=== PATIENT | male | born 1985 | race Caucasian/White ===

== ENCOUNTER 2022-10-26 14:12 | Inpatient (IN) | payer MEDICAID ==
[~2022-10-26] VITALS: Ht 188 cm; Wt 113.4 kg
[2022-10-26] MEDS ORDERED: IPRATROPIUM BROMIDE 0.5 MG/2.5 ML NEBU NEB STA (14:15)
[2022-10-26] MEDS ORDERED: CEFTRIAXONE 1 G in IV DEXTROSE 5% 50 ML IV SCH (14:15)
[2022-10-26] MEDS ORDERED: methylPREDNISolone SOD SUCC 125 MG/2 ML VIAL IV ONE (14:15)
[2022-10-26] MEDS ORDERED: AZITHROMYCIN IV 500 MG in IV DEXTROSE 5% 250 ML IV SCH (14:15)
[2022-10-26] MEDS ORDERED: MAGNESIUM SULFATE 2 GM in IV DEXTROSE 5% 100 ML IV ONE (14:15)
[2022-10-26] MEDS ORDERED: ACETAMINOPHEN ES 500 MG TABLET PO ONE (14:15)
[2022-10-26] MEDS ORDERED: ALBUTEROL SULFATE 2.5 MG/3 ML NEBU NEB ONE ×2 (14:15→18:00)
[2022-10-26] MEDS ORDERED: IV NORMAL SALINE 1000 ML BAG IV ONE (14:15)
[2022-10-26] MEDS ORDERED: methylPREDNISolone SOD SUCC 125 MG/2 ML VIAL ONE (14:16)
--- NOTE | 2022-10-26 14:25 | NUR ---
Patient placed on BiPap machine.
[2022-10-26] MEDS ORDERED: ALBUTEROL SULFATE 2.5 MG/3 ML NEBU ONE ×2 (14:30→20:22)
[2022-10-26] MEDS ORDERED: IPRATROPIUM BROMIDE 0.5 MG/2.5 ML NEBU ONE ×2 (14:30→20:22)
[2022-10-26] MEDS ORDERED: ALBU2.5V13 NEB (14:32)
[2022-10-26 14:38] LABS: HEMATOCRIT 43.9 % (36.7-47.1); MEAN CORPUSCULAR HEMOGLOBIN 29.5 uug (23.8-33.4); MEAN CORPUSCULAR VOLUME 88.3 fL (73.0-96.2); PLATELET COUNT (AUTO) 282 K/uL (152-348)
[2022-10-26 14:44] LABS: CARBON DIOXIDE 28 mmol/L (21-32); CHLORIDE 102 mmol/L (98-107); CREATININE 0.8 mg/dL (0.6-1.3); GLUCOSE 112 mg/dL (74-106); POTASSIUM 4.5 mmol/L (3.5-5.1); UREA NITROGEN, BLOOD 8 mg/dL (7-18)
[2022-10-26] MEDS ORDERED: CEFTRIAXONE /D5W 50ML IVPB **ER PYXIS IV ONE (14:47)
[2022-10-26] MEDS ORDERED: AZITHROMYCIN 500MG/ D5W 250ML IVPB **ER PYXIS ONLY IV ONE (14:48)
[2022-10-26 14:57] LABS: ALANINE AMINOTRANSFERASE 48 U/L (16-63); ALKALINE PHOSPHATASE 69 U/L (50-136); ASPARTATE AMINOTRANSFERASE 34 U/L (15-37); BILIRUBIN,DIRECT 0.3 mg/dL (0.0-0.2); BILIRUBIN,TOTAL 1.7 mg/dL (0.2-1.0); TOTAL PROTEIN, SERUM 8.6 g/dL (6.4-8.2)
--- NOTE | 2022-10-26 17:20 | NUR ---
Patient states he feels much better off the BiPap and his breathing improved.
--- NOTE | 2022-10-26 17:20 | NUR ---
Patient taken off BiPap.
[2022-10-26] MEDS ORDERED: MAGNESIUM HYDROXIDE 30 ML LIQUID UDC PO PRN (17:30)
[2022-10-26] MEDS ORDERED: levoFLOXacin 500 MG/D5W 500 MG in PREMIXED 1 EACH IV SCH (17:30)
[2022-10-26] MEDS ORDERED: REMEDY ESSENTIAL ZINC PASTE 113 GM TP PRN (17:30)
[2022-10-26] MEDS ORDERED: ACETAMINOPHEN 325 MG TABLET PO PRN (17:30)
[2022-10-26] MEDS ORDERED: ONDANSETRON 4 MG/2 ML VIAL IV PRN (17:30)
--- NOTE | 2022-10-26 17:30 | NUR ---
Patient placed on 4L nasal cannula.
[2022-10-26 17:52] LABS: ABG BASE EXCESS 0.8 mmol/L; ABG HCO3 24.4 mmol/L; ABG PCO2 35.8 mmHg (35.0-45.0); ABG PH 7.451 (7.350-7.450); ABG PO2 66.5 mmHg (75.0-100.0); ABG SITE RIGHT RADIAL; ABG TOTAL HEMOGLOBIN 14.3 G/dL (13.5-18.0); COHb 0.6 % (0.5-1.5); MetHb 0.1 % (0.0-1.5); O2Hb 94.1 % (94.0-97.0); VENT MODE Nasal Cannula
--- NOTE | 2022-10-26 18:31 | NUR ---
Per Lynne Cabrera to hold off on the Levaquin 500mg drip at this time.
[2022-10-26] MEDS: ENOXAPARIN SODIUM 40 MG/0.4 ML DISP.SYRIN SQ SCH (18:35)
--- NOTE | 2022-10-26 19:38 | NUR ---
PATIENT SITTING UP IN BED WITH FAMILY AT BEDSIDE, UPDATED ON PLAN OF CARE AWARE WILL BE ADMITTED TO THE HOSPITAL, INFORMED OF ROOM #, RECIEVING BREATHING TREATMENT AT THIS TIME. NO S/S OF ANY DISTRESS NOTED, ABD SOFT WITH POSITIVE BOWEL SOUNDS AND NON-TENDER TO PALPATION. SALINE LOCKS REMAIN INTACT, SIDE RAILS UP WILL CONTINUE TO MONITOR.
--- NOTE | 2022-10-26 20:01 | NUR ---
report given to German, patient remains stable for transport.
[2022-10-26] MEDS: ALBUTEROL SULFATE 2.5 MG/3 ML NEBU NEB SCH (20:29)
[2022-10-26] MEDS: IPRATROPIUM BROMIDE 0.5 MG/2.5 ML NEBU NEB SCH (20:29)
[2022-10-26 20:50] VITALS: BP 119/70
--- NOTE | 2022-10-26 21:20 | NUR ---
Received Pt from Jeanie (RN). Pt arrived in unit at 2041. Pt is A&Ox4 and cooperative. Pt currently on 4L of O2. 20G IV R wrist & 18 G left AC. SR on tele. Safety measures in place. Will continue to monitor.
[2022-10-26] MEDS: methylPREDNISolone SOD SUCC 40 MG/ML VIAL IV SCH (21:52)
[2022-10-27 00:02] VITALS: BP 106/51
[2022-10-27] MEDS: ALBUTEROL SULFATE 2.5 MG/3 ML NEBU NEB SCH ×6 (00:10→23:08)
[2022-10-27 04:11] VITALS: BP 104/58
[2022-10-27] MEDS ORDERED: ALBUTEROL SULFATE 2.5 MG/3 ML NEBU NEB PRN (04:30)
[2022-10-27] MEDS ORDERED: IPRATROPIUM BROMIDE 0.5 MG/2.5 ML NEBU NEB PRN (04:30)
[2022-10-27] MEDS: methylPREDNISolone SOD SUCC 40 MG/ML VIAL IV SCH ×3 (05:07→22:06)
--- NOTE | 2022-10-27 06:38 | NUR ---
End of Shift Note: Pt is A&Ox4 and cooperative. Pt currently on 2.5L of O2. Will inform Day shift to titrate as needed. SR on tele. Safety measures in place. Will continue to monitor.
--- NOTE | 2022-10-27 07:30 | NUR ---
RECEIVED PATIENT IN BED AWAKE ALERT AND ORIENTED WITH O2 AT 2.5L/M WITH NO SOB AT THIS TIME OCCASSIONAL COUGH EPISODES DENIES DISCOMFORTS TELE IS SR WITH NO ECTOPY CALL LIGHTS AND PERSONAL BELONGINGS ARE WITHIN EASY REACH AT THIS TIME WILL CONTINUE TO OBSERVE.
[2022-10-27] MEDS: IPRATROPIUM BROMIDE 0.5 MG/2.5 ML NEBU NEB SCH ×4 (07:40→23:08)
[2022-10-27 07:55] LABS: HEMATOCRIT 39.4 % (36.7-47.1); MEAN CORPUSCULAR HEMOGLOBIN 29.6 uug (23.8-33.4); MEAN CORPUSCULAR VOLUME 88.8 fL (73.0-96.2); PLATELET COUNT (AUTO) 271 K/uL (152-348)
[2022-10-27 08:09] LABS: CREATININE 0.8 mg/dL (0.6-1.3); MAGNESIUM 2.5 mg/dL (1.8-2.4); PHOSPHOROUS 4.1 mg/dL (2.5-4.9)
[2022-10-27] MEDS: PANTOPRAZOLE SODIUM 40 MG VIAL IV SCH (08:28)
--- NOTE | 2022-10-27 11:23 | NUR ---
PATIENT SEEN AND EXAMINED BY DR LAGUNAS WITH NEW ORDERS AND NOTED
[2022-10-27 11:45] VITALS: BP 108/48
--- NOTE | 2022-10-27 13:00 | NUR ---
RESTING IN BED AWARE THAT DR LAGUNAS ORDERED SPUTUM SPECIMEN CUP PROVIDED WILL LET US KNOW WHEN HE HAS THE SPECIMEN.
[2022-10-27] MEDS: levoFLOXacin 500 MG/D5W 500 MG in PREMIXED 1 EACH IV SCH (14:23)
[2022-10-27 16:27] VITALS: BP 114/55
--- NOTE | 2022-10-27 18:00 | NUR ---
SPUTUM SPECIMEN OBTAINED AND SENT TO THE LAB.IV ANTIBIOTICS INFUSED ORDERED WITH NO ADVERSE OR ALLERGIC REACTIONS AT THIS TIME NO SOB REMAIN ON O2 ORDERED.
[2022-10-27 20:00] VITALS: BP 112/63
[2022-10-27] MEDS: ENOXAPARIN SODIUM 40 MG/0.4 ML DISP.SYRIN SQ SCH (21:02)
[2022-10-28] VITALS: BP 101/63
[2022-10-28] MEDS: methylPREDNISolone SOD SUCC 40 MG/ML VIAL IV SCH ×3 (05:29→21:13)
[2022-10-28 07:13] VITALS: BP 104/63
[2022-10-28] MEDS: IPRATROPIUM BROMIDE 0.5 MG/2.5 ML NEBU NEB SCH ×4 (07:42→19:41)
[2022-10-28] MEDS: ALBUTEROL SULFATE 2.5 MG/3 ML NEBU NEB SCH ×4 (07:42→19:41)
[2022-10-28 07:50] LABS: HEMATOCRIT 38.9 % (36.7-47.1); MEAN CORPUSCULAR HEMOGLOBIN 29.7 uug (23.8-33.4); MEAN CORPUSCULAR VOLUME 89.3 fL (73.0-96.2); PLATELET COUNT (AUTO) 309 K/uL (152-348)
[2022-10-28 08:19] LABS: CREATININE 0.8 mg/dL (0.6-1.3); MAGNESIUM 2.5 mg/dL (1.8-2.4); PHOSPHOROUS 4.3 mg/dL (2.5-4.9); POTASSIUM 4.8 mmol/L (3.5-5.1)
[2022-10-28] MEDS: PANTOPRAZOLE SODIUM 40 MG VIAL IV SCH (08:51)
--- NOTE | 2022-10-28 10:30 | NUR ---
Pt. AAOX4. Vital signs WNL. Denies pain and any discomfort. Pt. in 2.5 L ocygen via nasal canula saturating 94-95%. No complain of any respiratory distress. Will continue to monitor.
[2022-10-28 11:52] VITALS: BP 104/59
--- NOTE | 2022-10-28 13:00 | NUR ---
Pt. AAOX4. Pt. sitting on the bed in RA this time as per MARGA Quigley's order and pt saturating 93% without any respiratory distress. Pt. went to CT scan of the chest via wheelchair as per .
[2022-10-28] MEDS: levoFLOXacin 500 MG/D5W 500 MG in PREMIXED 1 EACH IV SCH (14:20)
[2022-10-28 16:53] VITALS: BP 116/50
--- NOTE | 2022-10-28 18:35 | NUR ---
Pt. is comfortable and denies any pain. He is now saturating 93-94% RA without any respiratory distress. Continue to give Solu-medrol and pt. tolerated it well. CT scan result for chest shows no pericardial and pleural effusion. No enlarged mediastinal or axillary lympnodes. No pheumothorax bu there is multifocal patch interstitial opacities which may reflect atypical/viral infection.
[2022-10-28 20:00] VITALS: BP 108/59
[2022-10-28] MEDS: ENOXAPARIN SODIUM 40 MG/0.4 ML DISP.SYRIN SQ SCH (21:14)
[2022-10-29] VITALS: BP 105/64
[2022-10-29 04:00] VITALS: BP 110/62
[2022-10-29] MEDS: methylPREDNISolone SOD SUCC 40 MG/ML VIAL IV SCH (05:15)
[2022-10-29 06:46] LABS: HEMATOCRIT 36.4 % (36.7-47.1); MEAN CORPUSCULAR VOLUME 88.8 fL (73.0-96.2); PLATELET COUNT (AUTO) 305 K/uL (152-348)
[2022-10-29] MEDS ORDERED: PANTOPRAZOLE SODIUM 40 MG TABLET.DR PO SCH (07:00)
[2022-10-29 07:19] LABS: CREATININE 0.7 mg/dL (0.6-1.3); POTASSIUM 4.5 mmol/L (3.5-5.1)
[2022-10-29] MEDS: IPRATROPIUM BROMIDE 0.5 MG/2.5 ML NEBU NEB SCH ×3 (07:23→15:21)
[2022-10-29] MEDS: ALBUTEROL SULFATE 2.5 MG/3 ML NEBU NEB SCH ×3 (07:24→15:21)
--- NOTE | 2022-10-29 11:00 | NUR ---
PATIENT SEEN BY THE PHYSICAL THERAPY AND HE AMBULATED WITH STEADY GAIT ON ROOM AIR WITH SATS AT 94 PERCENT AND BACK TO ROOM
[2022-10-29 11:59] VITALS: BP 120/61
--- NOTE | 2022-10-29 13:00 | NUR ---
PATIENT SEEN BY WILLARD FELICIANO WITH ORDER TO DISCHARGE PATIENT HOME TODAY AND NOTED WILL PREPP PATIENT FOR DISCHARGE
[2022-10-29] MEDS ORDERED: ALBU2.5V13 NEB (13:48)
[2022-10-29] MEDS ORDERED: LEVO500T90 PO (13:48)
[2022-10-29] MEDS ORDERED: METH4TAB21 PO (13:48)
--- NOTE | 2022-10-29 15:15 | NUR ---
PATIENT DISCHARGED IN THE COMPANY OF HIS GIRL FRIEND NIKOS COREAS THEY STATED WILL TAKE THE UBER HOME .DISCHARGE INSTRUCTIONS GIVEN INCLUDING PICKING UP HIS MEDICATIONS AT THE [facility] AND FOLLOWING UP WITH HIS PRIMARY DOCTOR AND REPEATING HIS CHEST CT SCAN IN 3-6 MONTHS AND HE EXPRESSED UNDERSTANDING TOLERATED ROOM AIR WITH NO SHORTNESS OF BREATH AT THIS TIME.
[2022-10-29] MEDS ORDERED: methylPREDNISolone SOD SUCC 40 MG/ML VIAL IV SCH (21:00)
== END 2022-10-29 15:15 | disposition home or self-care (01) | DRG 139 ==
LOC: ER 14:14 → TELE3 19:16
PROVIDERS: ADMIT Nurse Practitioner Acute Care; ATTEND Nurse Practitioner Acute Care
PROC: 5A09357 Assistance with Respiratory Ventilation, Less than 24 Consecutive Hours, Continuous Positive Airway Pressure (ICD-10-PCS; principal; 2022-10-26)
DX: J12.9 Viral pneumonia, unspecified (principal); J96.01 Acute respiratory failure with hypoxia; J45.901 Unspecified asthma with (acute) exacerbation; Z20.822 Contact with and (suspected) exposure to COVID-19; E66.9 Obesity, unspecified; J20.9 Acute bronchitis, unspecified; E80.6 Other disorders of bilirubin metabolism; D72.829 Elevated white blood cell count, unspecified; Z87.891 Personal history of nicotine dependence; Z68.32 Body mass index [BMI] 32.0-32.9, adult; J20.8 Acute bronchitis due to other specified organisms
CPT/HCPCS: 36415; 36600; 71045; 71250; 82785; 83735; 84100; 84484; 85025; 87040; 87400; 93005; 94640; A4663; C9113; G0378; J0456; J0696; J1650; J1956; J2920; J2930; J3475; J3590; J7040; J7050